=== PATIENT | female | born 1990 | race Caucasian/White ===

== ENCOUNTER 2018-09-10 22:50 | Emergency (ER) | payer OTHER ==
[~2018-09-10] VITALS: Ht 165.1 cm; Wt 68.5 kg
[2018-09-10] MEDS ORDERED: TDAP DIPH,PERTUSS,TET VAC/PF 0.5 ML DISP.SYRIN IM ONE ×2 (23:24→23:30)
--- NOTE | 2018-09-10 23:45 | NUR ---
Patient discharged to home in stable conditon. Written and verbal after care instructions given. Patient verbalizes understanding of instructions.
[2018-09-10 23:46] VITALS: BP 120/88
== END 2018-09-10 23:46 | disposition home or self-care (01) ==
LOC: ER 22:50
DX: S61.452A Open bite of left hand, initial encounter (principal); S61.451A Open bite of right hand, initial encounter; Z88.0 Allergy status to penicillin; W55.01XA Bitten by cat, initial encounter; Y93.89 Activity, other specified; Y92.89 Other specified places as the place of occurrence of the external cause; Y99.8 Other external cause status
CPT/HCPCS: 90715; A4663

== ENCOUNTER 2019-07-18 23:10 | Emergency (ER) | payer OTHER ==
[~2019-07-18] VITALS: Ht 162.6 cm; Wt 78.9 kg
--- NOTE | 2019-07-18 23:30 | NUR ---
PATIENT WAS MSE BY DR MICHAEL IN ROOM 05B
[2019-07-18] MEDS ORDERED: HYDROCODONE/APAP 10-325 MG TABLET PO ONE (23:45)
[2019-07-18] MEDS ORDERED: ONDANSETRON ODT 4 MG TAB.RAPDIS SL ONE (23:45)
[2019-07-18] MEDS ORDERED: ONDANSETRON ODT 4 MG TAB.RAPDIS ONE (23:53)
[2019-07-18] MEDS ORDERED: HYDROCODONE/APAP 10-325 MG TABLET ONE (23:53)
--- NOTE | 2019-07-19 00:24 | NUR ---
PATIENT WAS EVALUATED BY DR MICHAEL OK DOC HOME.
[2019-07-19 00:32] VITALS: BP 120/68
== END 2019-07-19 00:35 | disposition home or self-care (01) ==
LOC: ER 23:13
DX: O9A.213 Injury, poisoning and certain other consequences of external causes complicating pregnancy, third trimester (principal); S29.012A Strain of muscle and tendon of back wall of thorax, initial encounter; Z88.0 Allergy status to penicillin; Z3A.28 28 weeks gestation of pregnancy; X50.0XXA Overexertion from strenuous movement or load, initial encounter; Y93.89 Activity, other specified; Y92.89 Other specified places as the place of occurrence of the external cause; Y99.8 Other external cause status
CPT/HCPCS: A4663; Q0162